=== PATIENT | female | born 1945 | race Caucasian/White ===

== ENCOUNTER 2016-05-11 12:25 | Outpatient (CLI) | payer MEDICARE, BC | END 2016-05-11 23:59 | disposition home or self-care (01) | LOC: WOU 12:25 | PROVIDERS: ATTEND Specialist | DX: S81.812A Laceration without foreign body, left lower leg, initial encounter (principal); W54.1XXA Struck by dog, initial encounter; F17.219 Nicotine dependence, cigarettes, with unspecified nicotine-induced disorders; E78.5 Hyperlipidemia, unspecified | CPT/HCPCS: 87070-TC; A6209; A6402; G0463 ==

== ENCOUNTER 2016-05-18 13:41 | Outpatient (CLI) | payer MEDICARE, BC | END 2016-05-18 23:59 | disposition home or self-care (01) | LOC: WOU 13:41 | PROVIDERS: ATTEND Specialist | DX: S81.812A Laceration without foreign body, left lower leg, initial encounter (principal); W45.0XXA Nail entering through skin, initial encounter; W22.8XXA Striking against or struck by other objects, initial encounter; Y92.89 Other specified places as the place of occurrence of the external cause; E78.5 Hyperlipidemia, unspecified; Z82.3 Family history of stroke; J70.5 Respiratory conditions due to smoke inhalation; F17.219 Nicotine dependence, cigarettes, with unspecified nicotine-induced disorders | CPT/HCPCS: 11042; A6209; A6402 ==

== ENCOUNTER 2016-05-25 12:50 | Outpatient (CLI) | payer MEDICARE, BC | END 2016-05-25 23:59 | disposition home or self-care (01) | LOC: WOU 12:50 | PROVIDERS: ATTEND Specialist | DX: S81.812A Laceration without foreign body, left lower leg, initial encounter (principal); W54.1XXA Struck by dog, initial encounter; I96 Gangrene, not elsewhere classified; F17.210 Nicotine dependence, cigarettes, uncomplicated; E78.5 Hyperlipidemia, unspecified | CPT/HCPCS: 11042; A6402 ==

== ENCOUNTER 2016-06-01 13:32 | Outpatient (CLI) | payer MEDICARE, BC | END 2016-06-01 23:59 | disposition home or self-care (01) | LOC: WOU 13:32 | PROVIDERS: ATTEND Specialist | DX: S81.812D Laceration without foreign body, left lower leg, subsequent encounter (principal); W54.1XXD Struck by dog, subsequent encounter; Y92.89 Other specified places as the place of occurrence of the external cause; F17.200 Nicotine dependence, unspecified, uncomplicated | CPT/HCPCS: A6402; G0463 ==

== ENCOUNTER 2016-06-15 13:26 | Outpatient (CLI) | payer MEDICARE, BC | END 2016-06-15 23:59 | disposition home or self-care (01) | LOC: WOU 13:26 | PROVIDERS: ATTEND Specialist | DX: S81.812D Laceration without foreign body, left lower leg, subsequent encounter (principal); W54.1XXD Struck by dog, subsequent encounter; F17.200 Nicotine dependence, unspecified, uncomplicated | CPT/HCPCS: A6402; G0463 ==